=== PATIENT | female | born 1960 | race Caucasian/White ===

== ENCOUNTER 2017-06-01 20:24 | Emergency (ER) | payer MEDICAID ==
[~2017-06-01] VITALS: Ht 160 cm; Wt 56.3 kg
[~2017-06-01 20:24] MED LIST: HYDR-3965 PO; IBUP-1985 PO; ONDA4TAB12 PO; PRED10TA PO; WALKERFR
[2017-06-01 20:38] VITALS: BP 139/80
== END 2017-06-02 00:04 | disposition left against medical advice (07) ==
LOC: ER 20:25
DX: Z00.8 Encounter for other general examination (principal); Z53.21 Procedure and treatment not carried out due to patient leaving prior to being seen by health care provider

== ENCOUNTER 2017-12-26 09:06 | Emergency (ER) | payer MEDICAID ==
[~2017-12-26] VITALS: Ht 162.6 cm; Wt 59.0 kg
[~2017-12-26 09:06] MED LIST changes: -HYDR-3965 PO
[2017-12-26 09:13] VITALS: BP 97/57
[2017-12-26] MEDS ORDERED: ibuprofen 200mg tablet PO ONE (09:55)
[2017-12-26] MEDS ORDERED: HYDR-3965 PO (11:13)
== END 2017-12-26 11:40 | disposition home or self-care (01) ==
LOC: ER 09:06
DX: S42.302A Unspecified fracture of shaft of humerus, left arm, initial encounter for closed fracture (principal); S52.572A Other intraarticular fracture of lower end of left radius, initial encounter for closed fracture; W18.30XA Fall on same level, unspecified, initial encounter; F17.200 Nicotine dependence, unspecified, uncomplicated; Z98.51 Tubal ligation status; Z56.0 Unemployment, unspecified; Y93.89 Activity, other specified; Y92.89 Other specified places as the place of occurrence of the external cause; Y99.8 Other external cause status
CPT/HCPCS: 29105; 73080; 73090; 73110; 99284

== ENCOUNTER 2018-01-02 13:38 | Outpatient (CLI) | payer MEDICAID ==
[2018-01-02 13:25] VITALS: BP 138/61
[~2018-01-02 13:38] MED LIST changes: +HYDR-3965 PO
== END 2018-01-02 14:34 | disposition home or self-care (01) ==
LOC: ORTHO 13:38
PROVIDERS: ATTEND Nurse Practitioner Family
DX: S52.592A Other fractures of lower end of left radius, initial encounter for closed fracture (principal); S42.492A Other displaced fracture of lower end of left humerus, initial encounter for closed fracture; F17.210 Nicotine dependence, cigarettes, uncomplicated; Z56.0 Unemployment, unspecified; W18.30XA Fall on same level, unspecified, initial encounter; Y93.89 Activity, other specified; Y92.89 Other specified places as the place of occurrence of the external cause; Y99.8 Other external cause status
CPT/HCPCS: 99213

== ENCOUNTER 2018-01-09 15:32 | Outpatient (CLI) | payer MEDICAID ==
[2018-01-09 15:34] VITALS: BP 99/77
== END 2018-01-09 16:32 | disposition home or self-care (01) ==
LOC: ORTHO 15:32
PROVIDERS: ATTEND Nurse Practitioner Family
DX: S52.592D Other fractures of lower end of left radius, subsequent encounter for closed fracture with routine healing (principal); S52.612D Displaced fracture of left ulna styloid process, subsequent encounter for closed fracture with routine healing; M19.032 Primary osteoarthritis, left wrist; M25.432 Effusion, left wrist; F17.210 Nicotine dependence, cigarettes, uncomplicated; Z72.89 Other problems related to lifestyle; Z56.0 Unemployment, unspecified; W18.39XD Other fall on same level, subsequent encounter
CPT/HCPCS: 73080; 73110; 99213; A4590

== ENCOUNTER 2018-01-30 16:22 | Outpatient (CLI) | payer MEDICAID ==
[2018-01-30 15:42] VITALS: BP 127/68
[~2018-01-30 16:22] MED LIST changes: -HYDR-3965 PO
== END 2018-01-30 16:52 | disposition home or self-care (01) ==
LOC: ORTHO 16:22
PROVIDERS: ATTEND Nurse Practitioner Family
DX: S52.592D Other fractures of lower end of left radius, subsequent encounter for closed fracture with routine healing (principal); S52.612D Displaced fracture of left ulna styloid process, subsequent encounter for closed fracture with routine healing; F17.210 Nicotine dependence, cigarettes, uncomplicated; Z56.0 Unemployment, unspecified; W19.XXXD Unspecified fall, subsequent encounter
CPT/HCPCS: 73110; 99213; A4590

== ENCOUNTER 2018-02-20 13:22 | Outpatient (CLI) | payer MEDICAID ==
[2018-02-20 13:22] VITALS: BP 142/74
== END 2018-02-20 14:08 | disposition home or self-care (01) ==
LOC: ORTHO 13:22
PROVIDERS: ATTEND Nurse Practitioner Family
DX: S52.592D Other fractures of lower end of left radius, subsequent encounter for closed fracture with routine healing (principal); F17.210 Nicotine dependence, cigarettes, uncomplicated; Z79.899 Other long term (current) drug therapy; Z72.89 Other problems related to lifestyle; Z56.0 Unemployment, unspecified; W19.XXXD Unspecified fall, subsequent encounter
CPT/HCPCS: 73110; 99213

== ENCOUNTER 2018-03-13 13:02 | Outpatient (CLI) | payer MEDICAID ==
[2018-03-13 13:02] VITALS: BP 131/92
== END 2018-03-13 13:54 | disposition home or self-care (01) ==
LOC: ORTHO 13:02
PROVIDERS: ATTEND Nurse Practitioner Family
DX: S52.592D Other fractures of lower end of left radius, subsequent encounter for closed fracture with routine healing (principal); S52.612D Displaced fracture of left ulna styloid process, subsequent encounter for closed fracture with routine healing; F17.210 Nicotine dependence, cigarettes, uncomplicated; Z56.0 Unemployment, unspecified; W01.0XXD Fall on same level from slipping, tripping and stumbling without subsequent striking against object, subsequent encounter
CPT/HCPCS: 73110; G0463

== ENCOUNTER 2018-04-03 13:53 | Outpatient (CLI) | payer MEDICAID ==
[2018-04-03 13:52] VITALS: BP 138/86
== END 2018-04-03 14:48 | disposition home or self-care (01) ==
LOC: ORTHO 13:53
PROVIDERS: ATTEND Nurse Practitioner Family
DX: S52.592D Other fractures of lower end of left radius, subsequent encounter for closed fracture with routine healing (principal); S52.612D Displaced fracture of left ulna styloid process, subsequent encounter for closed fracture with routine healing; F17.210 Nicotine dependence, cigarettes, uncomplicated; Z72.89 Other problems related to lifestyle; Z56.0 Unemployment, unspecified; W19.XXXD Unspecified fall, subsequent encounter
CPT/HCPCS: 73110; 99213

== ENCOUNTER 2022-08-15 23:34 | Emergency (ER) | payer MEDICAID ==
[~2022-08-15] VITALS: Ht 160 cm; Wt 56.8 kg
[2022-08-15 23:42] VITALS: BP 138/97
[2022-08-16] MEDS ORDERED: cephalexin 250mg capsule PO ONE (01:05)
[2022-08-16] MEDS ORDERED: bacitracin ointment unit dose packet TP SCH (08:00)
== END 2022-08-16 01:24 | disposition home or self-care (01) ==
LOC: ER 23:35
DX: L98.499 Non-pressure chronic ulcer of skin of other sites with unspecified severity (principal); Z98.51 Tubal ligation status; Z56.0 Unemployment, unspecified; Z72.89 Other problems related to lifestyle; Z98.890 Other specified postprocedural states; Z79.899 Other long term (current) drug therapy
CPT/HCPCS: 99283